=== PATIENT | male | born 1985 | race Two or more races ===

== ENCOUNTER 2016-09-26 08:19 | Emergency (ER) | payer SELFPAY ==
--- NOTE | 2016-09-26 08:28 | ER Document Report ---
HPI - HPI Patient complains to provider of: Anal pain and bleeding Onset: Other - On Onset/Duration: Intermittent Pain Level: 4 Context: 31-year-old obese type II diabetic is complaining of pain and bleeding. he has had intermittent abdominal cramping for a month associated with diarrhea. Last night he had 6 diarrheal stools and developed the recurrent anal pain. He was diagnosed with anal fissures in april and he suspects that there is something else wrong. No history of Crohn's, colitis, radiculitis. No abdominal pain today. No fever. Associated Symptoms: None Exacerbated by: Other - diarrhea stool Relieved by: Denies Similar symptoms previously: Yes Recently seen / treated by doctor: No - ROS ROS below otherwise negative: Yes Systems Reviewed and Negative: Yes All other systems reviewed and negative - DERM Skin Color: Normal Past Medical History - General Information source: Patient - Social History Smoking Status: Never Smoker Frequency of alcohol use: None Drug Abuse: Marijuana Lives with: Family Family History: Reviewed & Not Pertinent Patient has suicidal ideation: No Patient has homicidal ideation: No Endocrine Medical History: Reports: Hx Diabetes Mellitus Type 2 Renal/ Medical History: Denies: Hx Peritoneal Dialysis Surgical Hx: Negative Vertical Provider Document - CONSTITUTIONAL Agree With Documented VS: Yes Exam Limitations: No Limitations General Appearance: No Apparent Distress Notes: Obese - INFECTION CONTROL TRAVEL OUTSIDE OF THE [place] IN LAST 30 DAYS: No - HEENT HEENT: Normal ENT Exam - NECK Neck: Supple, Thyroid Normal. negative: Lymphadenopathy-Left, Lymphadenopathy- Right - RESPIRATORY Respiratory: Breath Sounds Normal, No Respiratory Distress O2 Sat by Pulse Oximetry: 96 - CARDIOVASCULAR Cardiovascular: Regular Rate, Regular Rhythm - GI/ABDOMEN Gastrointestinal: Abdomen Soft, Abdomen Non-Tender, No Organomegaly - REPRODUCTIVE Notes: Healing fibular which is not bleeding at this time anal canal at 5:00. No hemorrhoids. - MUSCULOSKELETAL/EXTREMETIES Musculoskeletal/Extremeties: ERENDIRA FRAUSTO - NEURO Level of Consciousness: Awake, Alert - DERM Integumentary: Warm, Dry Course - Re-evaluation Re-evalutation: 09/26/16 10:36 Labs normal - Vital Signs Vital signs: Temp Pulse Resp BP Pulse Ox 97.7 F 56 L 16 159/87 H 96 09/26/16 08:24 09/26/16 08:24 09/26/16 08:24 09/26/16 08:24 09/26/16 08:24 - Laboratory Result Diagrams: 09/26/16 09:10 09/26/16 09:10 Discharge - Discharge Clinical Impression: Elevated blood pressure reading, Anal fissure, Anal pain Diarrhea Qualifiers: Diarrhea type: unspecified type Qualified Code(s): R19.7 - Diarrhea, unspecified Condition: Good Disposition: HOME, SELF-CARE Instructions: Diarrhea, Nonspecific ([facility]), Anal Fissure ([facility]) Additional Instructions: see the home care associate for proctoscope or colonoscopy for the chronic intermittent diarrhea and anal pain anal steroid supposity in case you have some internal hemorrhoids copy of labs given to you to er if worse Please complete the patient satisfaction survey if you get one, and return it.. If you do not receive a survey, then you can go to the [facility] website, [email or web address] and place your comments about your very good care. Thank you very much. It was a pleasure being your medical provider today. Prescriptions: Hydrocortisone Acetate [Anusol-Hc] 25 mg RC DAILY #24 supp.rect Referrals: SHAREE SANTORO MD [ACTIVE STAFF] - Follow up tomorrow (call for appointment)
[2016-09-26 09:42] LABS: ABSOLUTE EOSINOPHILS # (AUTO) 0.1 10^3/uL (0.0-0.6); ABSOLUTE LYMPHOCYTES (AUTO) 2.3 10^3/uL (0.5-4.7); ABSOLUTE MONOCYTES (AUTO) 0.3 10^3/uL (0.1-1.4); ABSOLUTE NEUT (AUTO) 2.2 10^3/uL (1.7-8.2); BASOPHILS % (AUTO) 0.4 % (0-2); EOSINOPHILS % (AUTO) 1.6 % (0-6); HEMATOCRIT 45.7 % (37.9-51.0); HEMOGLOBIN 14.9 g/dL (13.5-17.0); LYMPHOCYTES % (AUTO) 47.4 % (13-45); MEAN CORPUSCULAR HEMOGLOBIN 28.5 pg (27.0-33.4); MEAN CORPUSCULAR HGB CONC 32.6 g/dL (32.0-36.0); MEAN CORPUSCULAR VOLUME 88 fl (80-97); MONOCYTES % (AUTO) 6.8 % (3-13); RED BLOOD COUNT 5.23 10^6/uL (4.35-5.55); RED CELL DISTRIBUTION WIDTH 14.6 % (11.5-14.0); SEGMENTED NEUTROPHILS % (AUTO) 43.8 % (42-78); WHITE BLOOD COUNT 4.9 10^3/uL (4.0-10.5)
[2016-09-26 10:00] LABS: ALANINE AMINOTRANSFERASE 43 U/L (21-72); ALBUMIN 3.5 g/dL (3.5-5.0); ALKALINE PHOSPHATASE 60 U/L (38-126); ANION GAP 7 (5-19); ASPARTATE AMINO TRANSFERASE 31 U/L (17-59); BILIRUBIN,DIRECT 0.2 mg/dL (0.0-0.4); BLOOD UREA NITROGEN 13 mg/dL (7-20); CALCIUM 8.8 mg/dL (8.4-10.2); CARBON DIOXIDE 27 mmol/L (22-30); CHLORIDE 105 mmol/L (98-107); CREATININE RESULT 0.89 mg/dL (0.52-1.25); GLUCOSE 110 mg/dL (75-110); SODIUM 139.4 mmol/L (137-145)
[2016-09-26 11:03] VITALS: BP 136/81
== END 2016-09-26 11:00 | disposition home or self-care (01) ==
LOC: ER 08:19
DX: R03.0 Elevated blood-pressure reading, without diagnosis of hypertension (principal); K60.2 Anal fissure, unspecified; K62.89 Other specified diseases of anus and rectum; R19.7 Diarrhea, unspecified
CPT/HCPCS: 36415; 80053; 84443; 85025; 99283

== ENCOUNTER 2017-08-18 02:39 | Emergency (ER) | payer SELFPAY ==
[2017-08-18] MEDS ORDERED: HYDROCODONE/ACETAMINOPHEN 5-325 MG TABLET PO ONE (04:00)
[2017-08-18 04:27] LABS: ABSOLUTE EOSINOPHILS # (AUTO) 0.1 10^3/uL (0.0-0.6); ABSOLUTE LYMPHOCYTES (AUTO) 2.6 10^3/uL (0.5-4.7); ABSOLUTE NEUT (AUTO) 3.6 10^3/uL (1.7-8.2); BASOPHILS % (AUTO) 0.3 % (0-2); EOSINOPHILS % (AUTO) 1.1 % (0-6); HEMATOCRIT 45.3 % (37.9-51.0); HEMOGLOBIN 15.8 g/dL (13.5-17.0); LYMPHOCYTES % (AUTO) 36.1 % (13-45); MEAN CORPUSCULAR HEMOGLOBIN 30.4 pg (27.0-33.4); MEAN CORPUSCULAR HGB CONC 34.9 g/dL (32.0-36.0); MEAN CORPUSCULAR VOLUME 87 fl (80-97); MONOCYTES % (AUTO) 13.4 % (3-13); PLATELET COUNT 241 10^3/uL (150-450); RED CELL DISTRIBUTION WIDTH 13.8 % (11.5-14.0); SEGMENTED NEUTROPHILS % (AUTO) 49.1 % (42-78); TOTAL CELLS COUNTED % (AUTO) 100 %; WHITE BLOOD COUNT 7.3 10^3/uL (4.0-10.5)
--- NOTE | 2017-08-18 04:36 | ER Document Report ---
ED General - General Chief Complaint: Chest Pain > 30 Stated Complaint: CHEST PAIN Time Seen by Provider: 08/18/17 03:51 Notes: Patient is a 32 year old male that comes to the emergency department for chief complaint of 3 days of body aches, chills, left sided chest pain, productive cough. He states he vomited once. He also reports 1.5 years of intermittent rectal pain and bleeding. PMH of morbid obesity, type II diabetes (metformin). He smokes marijuana, denies other substance abuse. Denies surgeries. Denies recent travel. No obvious sick contacts. He has never had a colonoscopy or endoscopy. He states he was told he had anal fissures in the past. TRAVEL OUTSIDE OF THE [place] IN LAST 30 DAYS: No - Related Data Allergies/Adverse Reactions: No Known Allergies Allergy (Unverified 09/26/16 08:24) Past Medical History - General Information source: Patient - Social History Smoking Status: Never Smoker Frequency of alcohol use: Rare Drug Abuse: Marijuana Lives with: Alone Family History: Reviewed & Not Pertinent Patient has suicidal ideation: No Patient has homicidal ideation: No Endocrine Medical History: Reports: Hx Diabetes Mellitus Type 2 Renal/ Medical History: Denies: Hx Peritoneal Dialysis Review of Systems - Review of Systems Constitutional: See HPI EENT: No symptoms reported Cardiovascular: See HPI Respiratory: See HPI Gastrointestinal: See HPI Genitourinary: No symptoms reported Male Genitourinary: No symptoms reported Musculoskeletal: See HPI Skin: No symptoms reported Hematologic/Lymphatic: No symptoms reported Neurological/Psychological: No symptoms reported Physical Exam - Vital signs Vitals: Temp Pulse Resp BP Pulse Ox 97.8 F 70 18 150/76 H 97 08/18/17 02:55 08/18/17 02:55 08/18/17 02:55 08/18/17 02:55 08/18/17 02:55 - Notes Notes: GENERAL: Alert, interacts well. No acute distress. Morbidly obese. HEAD: Normocephalic, atraumatic. EYES: Pupils equal, round, and reactive to light. Extraocular movements intact. ENT: Oral mucosa moist, tongue midline. [Nares patent, no nasal septal hematoma , TM's intact.] NECK: Full range of motion. Supple. Trachea midline. LUNGS: Clear to auscultation bilaterally, no wheezes, rales, or rhonchi. No respiratory distress. Occasional cough. Mild pain with palpation over the left and mid chest wall. HEART: Regular rate and rhythm. No murmur ABDOMEN: Soft, non-tender. Non-distended. Bowel sounds present in all 4 quadrants. RECTAL: Small external and larger internal hemorrhoids noted, no overt failure noted, no other abnormality noted EXTREMITIES: Moves all 4 extremities spontaneously. No edema, normal radial and dorsalis pedis pulses bilaterally. No cyanosis. BACK: no cervical, thoracic, lumbar midline tenderness. No saddle anesthesia, normal distal neurovascular exam. NEUROLOGICAL: Alert and oriented x3. Normal speech. [cranial nerves II through XII grossly intact]. PSYCH: Normal affect, normal mood. SKIN: Warm, dry, normal turgor. No rashes or lesions noted. Course - Re-evaluation Re-evalutation: Chest x-ray is unremarkable. Patient does have some pain with palpation of the left mid chest wall. EKG unremarkable. CBC shows elevation of monocytes but is otherwise unremarkable. Chemistry is unremarkable. Troponin negative despite 3 days of symptoms. Patient requested this be run. CK is elevated at greater than 500, discussed this with patient, he will drink a lot of fluids at home to compensate for this. Discussed workup, expectations, follow-up, return precautions. Based on his symptoms, examination, I suspect he does have a virus , he will be treated for this, he does have hemorrhoids and he asks for referral for treatment of this as well, I have low suspicion of ACS, PE, dissection, severe infection based on his vital signs, examination, symptoms, workup. - Vital Signs Vital signs: Temp Pulse Resp BP Pulse Ox 97.8 F 70 10 L 139/106 H 92 08/18/17 02:55 08/18/17 02:55 08/18/17 06:00 08/18/17 05:01 08/18/17 06:00 - Laboratory Result Diagrams: 08/18/17 04:12 08/18/17 04:12 Laboratory results interpreted by me: 08/18/17 08/18/17 04:12 04:12 Monocytes % 13.4 H Carbon Dioxide 33 H Creatine Kinase 535 H Discharge - Discharge Clinical Impression: Cough, Body aches, Rectal pain Chest pain Qualifiers: Chest pain type: unspecified Qualified Code(s): R07.9 - Chest pain, unspecified Condition: Stable Disposition: HOME, SELF-CARE Additional Instructions: Your workup and symptoms are more suggestive of viral illness. Her EKG, chest x -ray, and remaining workup did not show any concerning abnormalities except that you have too high of muscle protein levels in your blood. You need to drink a lot of fluids over the next week. Take Tessalon for cough during the day, take syrup at night if needed for cough , take muscle relaxer as prescribed, use cream as prescribed for hemorrhoids. In regards to hemorrhoids, follow-up with surgical clinic referral, I also recommend additional treatments listed below. Return for any concerning symptoms including difficulty breathing, fever of 100.4 or greater, or any other concerning or worsening symptoms. You have hemorrhoids. These are formed by enlargement of veins around the anus. The cause is increased pressure in the veins, from or straining at bowel movements. Hemorrhoids often cause itching and bleeding with bowel movements. When a hemorrhoid becomes clotted, severe pain and swelling result. Soothing creams and suppositories are often prescribed. Warm sitz-baths may also decrease pain, swelling, and itching. Eat a high-fiber diet. Stool softeners such as Metamucil will help. Keep the area very clean. Medicated cleansing pads (such as Tucks) are useful after bowel movements. A hose-mounted shower unit (like a shower massager at low water pressure) can be used to clean around tender hemorrhoid tags. You should call the doctor or return if you develop fever, increasing pain , or an enlarging mass around the anus, or if you simply fail to improve with treatment. Prescriptions: Hydrocodone Bit/Homatropine [Hycodan Syrup 5-1.5 mg/5 ml Ud Cup] 5 ml PO Q4HP PRN #120 ml PRN Reason: Benzonatate [Tessalon Perle 100 mg Capsule] 100 mg PO Q8HP PRN #20 cap PRN Reason: Hydrocortisone/Pramoxine [Analpram Hc 1% Cream] 30 gm RC TID PRN #1 cream.appl PRN Reason: Methocarbamol [Robaxin 750 mg Tablet] 750 mg PO Q6 #20 tablet Forms: Return to Work Referrals: [facility] [Provider Group] - Follow up as needed
[2017-08-18 04:40] LABS: ALANINE AMINOTRANSFERASE 36 U/L (21-72); ALBUMIN 3.9 g/dL (3.5-5.0); ALKALINE PHOSPHATASE 59 U/L (38-126); ANION GAP 9 (5-19); ASPARTATE AMINO TRANSFERASE 32 U/L (17-59); BILIRUBIN,DIRECT 0.2 mg/dL (0.0-0.4); BILIRUBIN,TOTAL 0.7 mg/dL (0.2-1.3); BLOOD UREA NITROGEN 14 mg/dL (7-20); CALCIUM 9.3 mg/dL (8.4-10.2); CARBON DIOXIDE 33 mmol/L (22-30); CHLORIDE 99 mmol/L (98-107); CREATINE KINASE 535 U/L (55-170); GLUCOSE 109 mg/dL (75-110); POTASSIUM 4.1 mmol/L (3.6-5.0); SODIUM 141.2 mmol/L (137-145); TOTAL PROTEIN 6.5 g/dL (6.3-8.2)
--- NOTE | 2017-08-18 06:08 | RADIOLOGY REPORT (SQ) ---
EXAM DESCRIPTION: XR CHEST 2 VIEWS CLINICAL HISTORY: 32 years Male, cough, chills, chest pain COMPARISON: None. FINDINGS: Adequate lung volume, clear parenchyma, normal cardiac silhouette, and intact bony thorax. IMPRESSION: No acute cardiopulmonary findings.
[2017-08-18 07:20] VITALS: BP 186/120
== END 2017-08-18 07:22 | disposition home or self-care (01) ==
LOC: ER 02:39
DX: R07.9 Chest pain, unspecified (principal); R05 Cough; R74.8 Abnormal levels of other serum enzymes; R11.10 Vomiting, unspecified; K64.8 Other hemorrhoids; K64.4 Residual hemorrhoidal skin tags; K62.5 Hemorrhage of anus and rectum; K62.89 Other specified diseases of anus and rectum; R68.83 Chills (without fever); F12.10 Cannabis abuse, uncomplicated; E11.9 Type 2 diabetes mellitus without complications; Z79.84 Long term (current) use of oral hypoglycemic drugs; E66.01 Morbid (severe) obesity due to excess calories; Z68.43 Body mass index [BMI] 50.0-59.9, adult
CPT/HCPCS: 36415; 71046; 80053; 82550; 84484; 85025; 99285